=== PATIENT | male | born 1945 | race Hispanic/Latino ===

== ENCOUNTER 2021-05-09 12:43 | Emergency (ER) | payer OTHER ==
[2021-05-09] MEDS ORDERED: ONDANSETRON 4 MG/2 ML VIAL ONE (14:10)
[2021-05-09] MEDS ORDERED: MORPHINE 4 MG/ML SYR ONE (14:10)
--- NOTE | 2021-05-09 14:24 | RAD REPORT ---
EXAM DESCRIPTION: RAD - Tib Fib Right - 05/09/2021 2:14 pm CLINICAL HISTORY: Pain;Deformity COMPARISON: No comparisons FINDINGS: Obliquely oriented and comminuted fracture of the distal tibia with intra-articular extens ion. No dislocation is identified. There is both foreshortening and lateral displacement by approxima tely 1 full shaft width. No fracture of the fibula is identified. The fracture involves the posterior malleolus as well. IMPRESSION: Comminuted and displaced distal tibial fracture with intra-articular extension. No dislo cation.
--- NOTE | 2021-05-09 14:24 | RAD REPORT ---
EXAM DESCRIPTION: RAD - Foot Right 3 View - 05/09/2021 2:14 pm CLINICAL HISTORY: PAIN COMPARISON: No comparisons FINDINGS: No right foot fractures identified. No malalignment. Reference dedicated ankle radiographs for description of the distal tibial fracture. IMPRESSION: No right foot fracture identified. Reference ankle radiograph for known distal tibial fr acture.
--- NOTE | 2021-05-09 14:27 | RAD REPORT ---
EXAM DESCRIPTION: RAD - Ankle Left 3 View - 05/09/2021 2:14 pm CLINICAL HISTORY: PAIN COMPARISON: No comparisons FINDINGS: No left ankle fracture identified. No i calcaneal and navicular bone fractures again ident ified. The ankle alignment is maintained IMPRESSION: No left ankle fracture or malalignment.
--- NOTE | 2021-05-09 14:27 | RAD REPORT ---
EXAM DESCRIPTION: RAD - Foot Left 3 View - 05/09/2021 2:14 pm CLINICAL HISTORY: PAIN COMPARISON: No comparisons FINDINGS: Comminuted fracture of the calcaneus identified. The fracture extends to the calcaneocuboi d joint. There is also a nondisplaced fracture involving the medial aspect of the navicular bone. No other fractures are identified. IMPRESSION: Comminuted calcaneal fracture as well as navicular fracture. Consider CT for better deli neation of the full fracture extent and to evaluate for other complicating features P
[2021-05-09] MEDS ORDERED: FENTANYL CITR 100 MCG/2 ML ONE (14:42)
[2021-05-09] MEDS ORDERED: propofoL 200 MG/20 ML VIAL IV ONE (14:42)
[2021-05-09] MEDS ORDERED: NA CHLORIDE 0.9% 1,000 ML ONE (14:42)
--- NOTE | 2021-05-09 15:55 | RAD REPORT ---
EXAM DESCRIPTION: RAD - Ankle Right 2 View - 05/09/2021 3:47 pm CLINICAL HISTORY: DEFORMITY COMPARISON: Ankle Left 3 View dated 05/09/2021; Foot Left 3 View dated 05/09/2021; Foot Right 3 View d ated 05/09/2021; Tib Fib Right dated 05/09/2021 FINDINGS: Postreduction radiograph demonstrating slightly improved alignment of the known distal tib ial comminuted fracture. No new fractures are identified. There is less overriding and approximately 1/2 shaft width of maximal displacement laterally. IMPRESSION: Slightly improved alignment postreduction with mild decreased but persistent lateral dis placement and overriding of the distal tibial fracture
--- NOTE | 2021-05-09 15:58 | RAD REPORT ---
EXAM DESCRIPTION: RAD - Foot Left 2 View - 05/09/2021 3:47 pm CLINICAL HISTORY: DEFORMITY COMPARISON: Foot Left 3 View dated 05/09/2021 FINDINGS: Postreduction radiograph demonstrating grossly similar alignment of the known calcaneal an d navicular fractures. IMPRESSION: Grossly similar alignment following reduction of the known calcaneal and navicular fract ures. .
--- NOTE | 2021-05-09 17:10 | EDPHYS ---
Physician Documentation [facility] Name: Eleuterio Presley Age: 75 yrs Sex: Male : 1945 Arrival Date: 05/09/2021 Time: 12:46 Bed 3 Private MD: ED Physician Wilian Butcher HPI: 05/09 12:55 This 75 yrs old Male presents to ER via EMS with complaints of Fall Injury. rn 12:55 Details of fall: The patient fell from a height, off a roof, approximately 10 feet. rn Onset: The symptoms/episode began/occurred just prior to arrival. Associated injuries: The patient sustained right and left ankle. Severity of symptoms: At their worst the symptoms were moderate, in the emergency department the symptoms are unchanged. The patient has not experienced similar symptoms in the past. The patient has not recently seen a physician. Reports getting off roof, foot caught nail, instead of falling forward decided to jump off, landed on both feet, reports only pain to both ankles and feet, no other injuries. Denies hitting head/LOC/neck pain/rib pain/chest pain/abd pain/back pain/hip or knee pain. Remembers all events and does not take blood thinners. . Historical: - Allergies: 12:53 No Known Allergies; ph - Home Meds: 12:53 None [Active]; ph - Immunization history: Last tetanus immunization: unknown. - Family history:: not pertinent. - Social history:: Smoking status: Patient denies any tobacco usage or history of. - Hospitalizations: : No recent hospitalization is reported. ROS: 12:55 Constitutional: Negative for fever, chills, and weight loss, Eyes: Negative for injury, rn pain, redness, and discharge, ENT: Negative for injury, pain, and discharge, Neck: Negative for injury, pain, and swelling, Cardiovascular: Negative for chest pain, palpitations, and edema, Respiratory: Negative for shortness of breath, cough, wheezing, and pleuritic chest pain, Abdomen/GI: Negative for abdominal pain, nausea, vomiting, diarrhea, and constipation, Back: Negative for injury and pain, : Negative for injury, bleeding, discharge, and swelling, MS/Extremity: + right and left ankle injury and pain Skin: Negative for injury, rash, and discoloration, Neuro: Negative for headache, weakness, numbness, tingling, and seizure. Exam: 12:55 Constitutional: This is a well developed, well nourished patient who is awake, alert, rn and in no acute distress. Head/Face: Normocephalic, atraumatic. Eyes: Pupils equal round and reactive to light, extra-ocular motions intact. Lids and lashes normal. Conjunctiva and sclera are non-icteric and not injected. Cornea within normal limits. Periorbital areas with no swelling, redness, or edema. ENT: No oral trauma. Neck: No cervical tenderness, no pain with ROM or flexion/extension Chest/axilla: Normal chest wall appearance and motion. Nontender with no deformity. No lesions are appreciated. Cardiovascular: Regular rate and rhythm. No pulse deficits. Respiratory: No increased work of breathing, no retractions or nasal flaring. Abdomen/GI: Soft, non-tender, non-distended Back: No spinal tenderness. Skin: Warm, dry MS/ Extremity: Pulses equal, no cyanosis. Neurovascular intact. + distal right tib-fib swelling and mild deformity, no open wounds. + left calcaneal tenderness with mild swelling, no tenderness of ankle or left tib fib. No knee or hip tenderness/deformity, no femur tenderness or swelling. Neuro: Awake and alert, GCS 15, oriented to person, place, time, and situation. Vital Signs: 12:57 BP 168 / 86; Pulse 85; Resp 14; Temp 98.2; Pulse Ox 95% on R/A; Weight 83.91 kg; Height ph 5 ft. 9 in. (175.26 cm); Pain 7/10; 14:04 BP 150 / 69; Pulse 82; Resp 20; Pulse Ox 95% on R/A; tw2 16:13 BP 170 / 68; Pulse 91; Resp 17; Pulse Ox 95% on R/A; tw2 16:54 BP 160 / 85; Pulse 85; Resp 18; Temp 97.8; Pulse Ox 96% on R/A; ph 17:30 BP 176 / 88; Pulse 98; Resp 17; Pulse Ox 96% on R/A; tw2 18:24 BP 144 / 80; Pulse 86; Resp 14; Pulse Ox 95% on R/A; tw2 12:57 Body Mass Index 27.32 (83.91 kg, 175.26 cm) ph Iram Coma Score: 12:57 Eye Response: spontaneous(4). Verbal Response: oriented(5). Motor Response: obeys ph commands(6). Total: 15. 16:54 Eye Response: spontaneous(4). Verbal Response: oriented(5). Motor Response: obeys ph commands(6). Total: 15. Trauma Score (Adult): 12:57 Eye Response: spontaneous(1); Verbal Response: oriented(1); Motor Response: obeys ph commands(2); Systolic BP: > 89 mm Hg(4); Respiratory Rate: 10 to 29 per min(4); [place] Score: 15; Trauma Score: 12 16:54 Eye Response: spontaneous(1); Verbal Response: oriented(1); Motor Response: obeys ph commands(2); Systolic BP: > 89 mm Hg(4); Respiratory Rate: 10 to 29 per min(4); [place] Score: 15; Trauma Score: 12 Procedures: 15:12 Splinting: Splint applied to right ankle using Orthoglass splint, applied by myself. rn post reduction film - reveals improved alignment, Examined by me, post splint application: neurovascular intact, 2+ distal pulses palpable, brisk capillary refill noted, Patient tolerated well. Splinting: Splint applied to left foot using Orthoglass splint, applied by myself. post reduction film - reveals improved alignment, Examined by me, post splint application: neurovascular intact, 2+ distal pulses palpable, brisk capillary refill noted, Patient tolerated well. Reduction: of the right ankle, using traction, manipulation, Immobilized with orthoglass posterior and stirrup splint. Patient tolerated well. Post reduction film - reveals improved alignment. Moderate sedation: Pre-procedure assessment: the patient has been NPO 4 hour(s) prior to arrival, ASA physical classification: I - healthy, no underlying organic disease, Airway assessment: able to hyperextend neck, able to maintain airway, can open mouth without difficulty, Monitoring during procedure: media monitor, continuous pulse oximetry, nurse at bedside at all times, Medications employed: Fentanyl, 75 mcg(s), propofol, Post-procedure assessment: the patient is mildly sedated, Respiratory status: even and unlabored, a reversal agent was not used. MDM: 12:46 Patient medically screened. rn 15:40 Differential diagnosis: contusion, fracture, multiple trauma, sprain, strain. Data rn reviewed: vital signs, nurses notes, radiologic studies, plain films, and as a result, I will admit patient. Counseling: I had a detailed discussion with the patient and/or guardian regarding: the historical points, exam findings, and any diagnostic results supporting the discharge/admit diagnosis, radiology results, the need for further work-up and treatment in the hospital, the need to transfer to another facility. Response to treatment: the patient's symptoms have mildly improved after treatment, and as a result, I will admit patient. Admission orders: after a detailed discussion of the patient's condition and case, the admit orders are written by me. ED course: Consulted with Dr. Garcia, after patient's son requested he be splinted and family can take him to orthopedics in [place], Dr. Garcia recommends transfer to [place] [place] for more emergent repair. Able to transiently obtain good length during reduction, but keeps retracting upon splint placement. Tolerated splinting and reduction well. . 17:06 ED course: Spoke with patient and son, they are ok with transfer to trauma center, rn accepted for transfer to [facility]. . 05/09 12:49 Order name: XRAY Tib Fib RIGHT; Complete Time: 14:36 rn 05/09 12:49 Order name: XRAY Foot RIGHT 3 View; Complete Time: 14:36 rn 05/09 12:49 Order name: XRAY Foot LEFT 3 View; Complete Time: 14:36 rn 05/09 12:49 Order name: XRAY Ankle LEFT 3 view; Complete Time: 14:36 rn 05/09 15:11 Order name: XRAY Ankle RIGHT 2 view; Complete Time: 15:59 tw2 05/09 15:11 Order name: XRAY Foot LEFT 2 View; Complete Time: 15:59 tw2 05/09 12:53 Order name: NPO; Complete Time: 12:59 rn 05/09 12:53 Order name: IV Start; Complete Time: 12:59 rn 05/09 14:43 Order name: Conscious Sedation; Complete Time: 15:51 tw2 Administered Medications: 10:50 Drug: Propofol 60 mg Route: IVP; Site: right hand; ph 16:55 Follow up: Response: No adverse reaction ph 13:59 Drug: Zofran (Ondansetron) 4 mg Route: IVP; Site: right hand; ph 16:55 Follow up: Response: No adverse reaction ph 14:01 Drug: morphine 4 mg Route: IVP; Site: right hand; ph 16:55 Follow up: Response: No adverse reaction ph 14:50 Drug: fentaNYL (PF) 75 mcg Route: IVP; Site: right hand; ph 16:55 Follow up: Response: No adverse reaction ph 14:55 Drug: Propofol 60 mg Route: IVP; Site: right hand; ph 16:55 Follow up: Response: No adverse reaction ph 18:32 Drug: GI Cocktail without - (Maalox Suspension 30 ml, Lidocaine Liquid 2 % 15 ss ml) Route: PO; 19:29 Follow up: Response: No adverse reaction jm8 19:23 Drug: Demerol (meperidine) 25 mg Route: IVP; Site: right hand; jm8 19:29 Follow up: Response: No adverse reaction jm8 Disposition Summary: 05/09/21 17:09 Transfer Ordered Transfer Location: [facility] rn Reason: Higher level of care rn Condition: Stable rn Problem: new rn Symptoms: have improved rn Accepting Physician: (05/09/21 19:29) jm8 Diagnosis - Fracture of calcaneus - Displaced, left foot rn - Fracture of navicular bone, left foot rn - Displaced comminuted fracture of shaft of right tibia, initial encounter for closed rn fracture Discharge Instructions: - Discharge Summary Sheet ph Forms: - Medication Reconciliation Form rn - SBAR form ph Signatures: Dispatcher [employer] EDWilian Watson MD MD rn Smirch, Shelby RN RN Mickie Way RN RN ph Wise, Tara RN RN 2 Rey Fam RN RN jm8 Corrections: (The following items were deleted from the chart) 19: 17:09 Dr. valencia jm8
--- NOTE | 2021-05-09 17:10 | ER ---
Nurse's Notes [facility] Name: Eleuterio Presley Age: 75 yrs Sex: Male : 1945 Arrival Date: 05/09/2021 Time: 12:46 Bed 3 Private MD: Diagnosis: Fracture of calcaneus-Displaced, left foot;Fracture of navicular bone, left foot;Displaced comminuted fracture of shaft of right tibia, initial encounter for closed fracture Presentation: 05/09 12:47 Chief complaint: EMS states: Pt was working on roof, tripped over a nail, felt that he ph was going to fall from roof and did not want to land on his head so he jumped off and landed on both feet, obvious deformity to R ankle, splint placed, also reports some pain to L ankle, denies other injury or pain, 20G IV established to R hand and a total of 100 mcg of Fentanyl given CADD TECHNICIAN. Care prior to arrival: Cervical collar in place. Placed on backboard. Splint applied. Mechanism of Injury: Fall from roof approximately 11 feet. Trauma event details: Injury occurred in the [facility], Injury occurred: at home. Injury occurred: May 09, 2021. 12:47 Acuity: JUHI 2 ph 12:47 Method Of Arrival: EMS: [facility] ph 12:58 Coronavirus screen: Client denies travel out of the [place] in the last 14 days. Ebola ph Screen: No symptoms or risks identified at this time. Initial Sepsis Screen: Does the patient meet any 2 criteria? No. Patient's initial sepsis screen is negative. Does the patient have a suspected source of infection? No. Patient's initial sepsis screen is negative. Risk Assessment: Do you want to hurt yourself or someone else? Patient reports no desire to harm self or others. Onset of symptoms was May 09, 2021. Trauma Activation: Physician: ED Physician; Name: [place]; Notified At: ; Arrived At: Physician: General Surgeon; Name: ; Notified At: ; Arrived At: Physician: Radiology; Name: ; Notified At: ; Arrived At: Physician: Respiratory; Name: ; Notified At: ; Arrived At: Physician: Lab; Name: ; Notified At: ; Arrived At: Historical: - Allergies: 12:53 No Known Allergies; ph - Home Meds: 12:53 None [Active]; ph - Immunization history: Last tetanus immunization: unknown. - Family history:: not pertinent. - Social history:: Smoking status: Patient denies any tobacco usage or history of. - Hospitalizations: : No recent hospitalization is reported. Screenin:57 Abuse screen: Denies threats or abuse. Denies injuries from another. Nutritional ph screening: No deficits noted. Tuberculosis screening: No symptoms or risk factors identified. Fall Risk None identified. Primary Survey: 12:52 NO uncontrolled hemorrhage observed. A: The patient is alert. Airway: patent, No ph supplemental oxygen in use on arrival. Oral cavity: clear, Trachea midline. Breathing/Chest: Respiratory pattern: no respiratory pattern noted, Respiratory effort: spontaneous, unlabored, Chest inspection: symmetrical rise and fall of the chest. Circulation: Skin color: pink, Skin temperature: warm, dry. Disability Alert. Exposure/Environment: All clothing and personal items were removed. Forensic evidence collection is not deemed to be indicated at this time. Items placed in patient belonging bag. There is no evidence of uncontrolled external bleeding. Obvious injury(ies) are noted at this time: deformity to R ankle A warming method has been applied: A warm blanket has been provided to the patient. 17:22 Reassessment Airway Airway Patent Oxygen No O2 Breathing/Chest Respiratory pattern ph Regular Respiratory effort Spontaneous Unlabored Chest inspection Symmetrical Circulation Color [place] Temperature Warm Dry Disability Alert. Secondary Survey: 12:53 HEENT: No deficits noted. Gastrointestinal: No deficits noted. Musculoskeletal: ph Circulation, motion, and sensation intact. Bony deformity noted of right ankle. Assessment: 12:50 Reassessment: Dr Butcher at bedside to assess pt, pt denies pain in hips, back or neck, ph cleared from backboard, c-collar also removed by Dr Butcher, pt denies cervical tenderness, full ROM noted. General: Appears in no apparent distress. Behavior is calm, cooperative, appropriate for age. Pain: Complains of pain in right ankle and left ankle. Neuro: Level of Consciousness is awake, alert, obeys commands, Oriented to person, place, time, situation, Pupils are PERRLA, Denies dizziness, headache. Cardiovascular: Capillary refill < 3 seconds in bilateral fingers Patient's skin is warm and dry. Respiratory: Airway is patent Respiratory effort is even, unlabored, Respiratory pattern is regular, symmetrical, Denies shortness of breath. GI: No signs and/or symptoms were reported involving the gastrointestinal system. Patient currently denies abdominal pain, nausea. Derm: Skin is healthy with good turgor, Skin is pink, warm \T\ dry. Musculoskeletal: Circulation, motion, and sensation intact. Bony deformity noted of right ankle. 14:02 Reassessment: Patient appears in no apparent distress at this time. Patient and/or ph family updated on plan of care and expected duration. Pain level reassessed. Patient is alert, oriented x 3, equal unlabored respirations, skin warm/dry/pink. Swelling noted to have increased to L foot, ice pack placed and foot elevated per DR Butcher. 14:45 Reassessment: Patient appears in no apparent distress at this time. Patient and/or ph family updated on plan of care and expected duration. Pain level reassessed. Patient is alert, oriented x 3, equal unlabored respirations, skin warm/dry/pink. Dr Butcher at bedside for conscious sedation. 16:13 Reassessment: provider at bedside at this time discussing with pts son the POC. tw2 16:14 Reassessment: Patient appears in no apparent distress at this time. Patient is alert, tw2 oriented x 3, equal unlabored respirations, skin warm/dry/pink. 16:53 Reassessment: Patient appears in no apparent distress at this time. Patient and/or ph family updated on plan of care and expected duration. Pain level reassessed. Patient is alert, oriented x 3, equal unlabored respirations, skin warm/dry/pink. Pt speak ing on phone to son, son requesting to speak w/ Dr Butcher, now at bedside on phone w/ son. 17:00 Reassessment: Report called to [facility]. ph 17:22 Reassessment: Patient appears in no apparent distress at this time. Patient and/or ph family updated on plan of care and expected duration. Pain level reassessed. Patient is alert, oriented x 3, equal unlabored respirations, skin warm/dry/pink. Vital Signs: 12:57 BP 168 / 86; Pulse 85; Resp 14; Temp 98.2; Pulse Ox 95% on R/A; Weight 83.91 kg; Height ph 5 ft. 9 in. (175.26 cm); Pain 7/10; 14:04 BP 150 / 69; Pulse 82; Resp 20; Pulse Ox 95% on R/A; tw2 16:13 BP 170 / 68; Pulse 91; Resp 17; Pulse Ox 95% on R/A; tw2 16:54 BP 160 / 85; Pulse 85; Resp 18; Temp 97.8; Pulse Ox 96% on R/A; ph 17:30 BP 176 / 88; Pulse 98; Resp 17; Pulse Ox 96% on R/A; tw2 18:24 BP 144 / 80; Pulse 86; Resp 14; Pulse Ox 95% on R/A; tw2 12:57 Body Mass Index 27.32 (83.91 kg, 175.26 cm) ph Iram Coma Score: 12:57 Eye Response: spontaneous(4). Verbal Response: oriented(5). Motor Response: obeys ph commands(6). Total: 15. 16:54 Eye Response: spontaneous(4). Verbal Response: oriented(5). Motor Response: obeys ph commands(6). Total: 15. Trauma Score (Adult): 12:57 Eye Response: spontaneous(1); Verbal Response: oriented(1); Motor Response: obeys ph commands(2); Systolic BP: > 89 mm Hg(4); Respiratory Rate: 10 to 29 per min(4); [place] Score: 15; Trauma Score: 12 16:54 Eye Response: spontaneous(1); Verbal Response: oriented(1); Motor Response: obeys ph commands(2); Systolic BP: > 89 mm Hg(4); Respiratory Rate: 10 to 29 per min(4); Iram Score: 15; Trauma Score: 12 ED Course: 12:46 Patient arrived in ED. ph 12:46 Wilian Butcher MD is Attending Physician. rn 12:52 Triage completed. ph 12:58 Arm band placed on. ph 12:58 Patient has correct armband on for positive identification. Placed in gown. Bed in low ph position. Call light in reach. Side rails up X2. golf range attendant on. Pulse ox on. NIBP on. Door closed. Noise minimized. Warm blanket given. 12:58 Patient maintains SpO2 saturation greater than 95% on room air. Thermoregulation: warm ph blanket given to patient. 12:59 Maintain EMS IV. Dressing intact. Good blood return noted. Site clean \T\ dry. Gauge \T\ ph site: 20 R hand. IV is patent, is intact, with fluids infusing freely, with good blood return. 14:[address], RN is Primary Nurse. ph 14:13 XRAY Tib Fib RIGHT In Process Unspecified. EDMS 14:13 XRAY Foot RIGHT 3 View In Process Unspecified. EDMS 14:14 XRAY Foot LEFT 3 View In Process Unspecified. EDMS 14:14 XRAY Ankle LEFT 3 view In Process Unspecified. EDMS 14:55 Assist provider with fracture care of right ankle Fracture is closed. Obvious deformity ph is noted. Circulation, motor and sensation is intact. Set up for procedure. Performed by Wilian Butcher MD Reduced with physical manipulation. Immobilized with OCL splint, Post immobilization, circulation, motor and sensation remain intact. Patient tolerated well. Assist provider with fracture care of left foot Fracture is closed. Obvious deformity is noted. Circulation, motor and sensation is intact. Set up for procedure. Performed by Wilian Butcher MD Reduction was not performed. Immobilized with OCL splint, Post immobilization, circulation, motor and sensation remain intact. Patient tolerated well. Patient transferred, IV remains in place. 15:47 XRAY Ankle RIGHT 2 view In Process Unspecified. EDMS 15:47 XRAY Foot LEFT 2 View In Process Unspecified. EDMS 16:00 attempted to initiate transfer to [facility] but their phones are down. mt 16:30 initiated transfer to [facility] with [place]. mt 16:40 admin approval given by henok novak to dr mays at [facility] ER. mt 17:27 called [facility] to request transport, 1.5 hr ETA. mt Administered Medications: 10:50 Drug: Propofol 60 mg Route: IVP; Site: right hand; ph 16:55 Follow up: Response: No adverse reaction ph 13:59 Drug: Zofran (Ondansetron) 4 mg Route: IVP; Site: right hand; ph 16:55 Follow up: Response: No adverse reaction ph 14:01 Drug: morphine 4 mg Route: IVP; Site: right hand; ph 16:55 Follow up: Response: No adverse reaction ph 14:50 Drug: fentaNYL (PF) 75 mcg Route: IVP; Site: right hand; ph 16:55 Follow up: Response: No adverse reaction ph 14:55 Drug: Propofol 60 mg Route: IVP; Site: right hand; ph 16:55 Follow up: Response: No adverse reaction ph 18:32 Drug: GI Cocktail without - (Maalox Suspension 30 ml, Lidocaine Liquid 2 % 15 ss ml) Route: PO; 19:29 Follow up: Response: No adverse reaction jm8 19:23 Drug: Demerol (meperidine) 25 mg Route: IVP; Site: right hand; jm8 19:29 Follow up: Response: No adverse reaction jm8 Intake: 12:57 PO: 0ml; Total: 0ml. ph Outcome: 17:09 ER care complete, transfer ordered by . rn 19:28 Transferred by ground EMS to [facility], Transfer form completed. X-rays sent leoonra w/ patient. 19:28 Condition: good 19:28 Instructed on the need for admit, Demonstrated understanding of instructions. 19:28 Patient's length of stay in the Emergency Department was greater than 2 hours. awaiting placementPatient's length of stay extended due to 19:29 Patient left the ED. jm8 Signatures: Dispatcher [employer] EDMS Wilian Butcher MD MD rn Smirch, Shelby, RN RN Mickie Way RN RN Zara Martin, RN RN [facility] Ivanna Gardner [place] Rey Fam RN RN [id number]
[2021-05-09] MEDS ORDERED: MAGNES/ALUMIN/SIMET 30ML UCUP ONE (18:50)
[2021-05-09] MEDS ORDERED: LIDOCAINE VISCOUS 2% SOLN 15 ML UDC ONE (18:50)
[2021-05-09] MEDS ORDERED: MEPERIDINE HCL 25 MG/ML SYR ONE (19:39)
[2021-05-09 19:53] VITALS: TEMP 97.8
[2021-05-09 19:56] VITALS: BP 144/80; O2SAT 95
== END 2021-05-09 19:29 | disposition short-term general hospital (02) ==
LOC: ER 12:43
PROC: 2W3RX1Z Immobilization of Left Lower Leg using Splint (ICD-10-PCS; principal; 2021-05-09)
PROC: 0QSJXZZ Reposition Right Fibula, External Approach (ICD-10-PCS; 2021-05-09)
DX: S82.251A Displaced comminuted fracture of shaft of right tibia, initial encounter for closed fracture (principal); S92.002A Unspecified fracture of left calcaneus, initial encounter for closed fracture; S92.252A Displaced fracture of navicular [scaphoid] of left foot, initial encounter for closed fracture; W13.2XXA Fall from, out of or through roof, initial encounter; Y93.89 Activity, other specified
CPT/HCPCS: 73630 ×2; 73620; 73590; 73610; 73600; 29515; 27781; J2704; J3010; J2175; J7030; J2405; 96374; 96375; 99285